=== PATIENT | male | born 1960 | race Hispanic/Latino ===

== ENCOUNTER 2019-01-03 16:35 | Inpatient (IN) | payer OTHER | END 2019-01-19 12:05 | disposition home or self-care (01) | LOC: 2BH 01-05 00:57 → 2DH 01-08 16:27 → 2AH 01-13 00:31 → 3BH 01-18 16:42 → 2AH 16:35 → 2CV 01-04 11:31 | PROC: B2131ZZ Fluoroscopy of Multiple Coronary Artery Bypass Grafts using Low Osmolar Contrast (ICD-10-PCS; principal; ~2019-01-03) | PROC: 5A02210 Assistance with Cardiac Output using Balloon Pump, Continuous (ICD-10-PCS; ~2019-01-03) | PROC: B2111ZZ Fluoroscopy of Multiple Coronary Arteries using Low Osmolar Contrast (ICD-10-PCS; ~2019-01-03) | PROC: B2151ZZ Fluoroscopy of Left Heart using Low Osmolar Contrast (ICD-10-PCS; ~2019-01-03) | DX: I21.3 ST elevation (STEMI) myocardial infarction of unspecified site (principal); J18.1 Lobar pneumonia, unspecified organism; G92 Toxic encephalopathy; I50.23 Acute on chronic systolic (congestive) heart failure; N18.6 End stage renal disease; F10.231 Alcohol dependence with withdrawal delirium; I13.2 Hypertensive heart and chronic kidney disease with heart failure and with stage 5 chronic kidney disease, or end stage renal disease; I24.9 Acute ischemic heart disease, unspecified; J45.909 Unspecified asthma, uncomplicated; F10.20 Alcohol dependence, uncomplicated; F14.10 Cocaine abuse, uncomplicated; F14.129 Cocaine abuse with intoxication, unspecified; E78.5 Hyperlipidemia, unspecified; E86.9 Volume depletion, unspecified; I25.119 Atherosclerotic heart disease of native coronary artery with unspecified angina pectoris; Z99.2 Dependence on renal dialysis ==